=== PATIENT | male | born 1965 | race Caucasian/White ===

== ENCOUNTER 2022-07-14 21:23 | Emergency (ER) | payer BC ==
--- OUTSIDE RECORDS SUMMARY | 2022-07-14 21:26 | XMS REPORT | Continuity of Care Document ---
:1965 Author Organization [facility] t Address [address] [place] [address] Care Team Providers Name Role Phone [place] LITTLE, Jono Almeida Attending Clinician Payers Payer Name Policy Type Policy Number Effective Date Expiration Date S ource Problems This patient has no known problems. Allergies, Adverse Reactions, Alerts This patient has no known allergies or adverse reactions. Social History Social Habit Start Date Stop Date Quantity Comments Source Alcohol intake [facility] Sex Assigned At [facility] Smoking Status Start Date Stop Date Source Current every day smoker 2018-05-31 00:00:00 [facility] Medications Ordered Filled Start Stop Current Ordering Indication Dosage Frequency Signature Comments Components Source Medication Medication Date Date Medication? Clinician (SIG) Name Name enalapril Yes 10mg Take 1 Univer s 10 mg 9-17 tablet by ity of tablet 00:00: mouth 2 [place] 00 (two) Medical times [place] daily. enalapril 2019- No 10mg Take 1 Unive rs 10 mg 4-29 -17 tablet by ity of tablet 00:00: 00:00 mouth 2 [place] 00 :00 (two) Medical times [place] daily. omeprazole 2017- Yes Univers 40 mg 5-18 ity of capsule 00:00: [place] 00 [facility] sucralfate 2018-0 Yes Univers 1 gram 5-18 ity of tablet 00:00: [place] 00 [facility] HYDROcodone 2018-0 Yes Univer s -acetaminop 4-30 ity of hen 10-325 00:00: [place] mg tablet 00 Medical Branch Procedures This patient has no known procedures. Encounters Start End Encounter Admission Attending Care Care Encounter Source Date/Time Date/Time Type Type Clinicians Facility Department ID 2019-07-18 2019-07-18 Telephone DANIEL MillardMB [id number] [facility] 00:00:00 00:00:00 Jono Owens [id number] ity caty [place] [id number] Jackson Heller [id number] Al dical nal 0[address] Branch Building Results This patient has no known results.
--- NOTE | 2022-07-14 22:37 | EDPHYS ---
Physician Documentation [facility] Name: Andres Cuevas Age: 56 yrs Sex: Male : 1965 Arrival Date: 07/14/2022 Time: 21:24 Bed 17 Private MD: ED Physician Erwin Gonzales HPI: 07/15 19:12 This 56 yrs old Male presents to ER via Ambulatory with complaints of Snake bite. kdr 19:12 The patient was bitten on the dorsal aspect of distal phalanx of right index finger, by kdr a snake. Onset: The symptoms/episode began/occurred suddenly, 4 hour(s) ago. Animal information: Patient/Caregiver unable to provide information related to the animal. Secondary to the bite the patient reports erythema, swelling. Associated signs and symptoms: The patient has no apparent associated signs or symptoms. Severity of symptoms: At their worst the symptoms were very mild. The patient has not experienced similar symptoms in the past. The patient has not recently seen a physician. Historical: - Allergies: 07/14 21:44 No Known Allergies; ja4 - Immunization history:: Adult Immunizations not up to date. ROS: 07/15 19:12 Constitutional: Negative for fever, chills, and weight loss, Eyes: Negative for injury, kdr pain, redness, and discharge, Neck: Negative for injury, pain, and swelling, Cardiovascular: Negative for chest pain, palpitations, and edema, Respiratory: Negative for shortness of breath, cough, wheezing, and pleuritic chest pain, Abdomen/GI: Negative for abdominal pain, nausea, vomiting, diarrhea, and constipation, Back: Negative for injury and pain, : Negative for injury, bleeding, discharge, and swelling, Neuro: Negative for headache, weakness, numbness, tingling, and seizure activity. Psych: Negative for depression, anxiety, suicide ideation, homicidal ideation, and hallucinations, Allergy/Immunology: Negative for hives, rash, and allergies, Endocrine: Negative for neck swelling, polydipsia, polyuria, polyphagia, and marked weight changes, Hematologic/Lymphatic: Negative for swollen nodes, abnormal bleeding, and unusual bruising. MS/extremity: Positive for injury or acute deformity, abrasion, erythema, pain, swelling, Patient reports swelling to the right hand up to approximately the wrist., Negative for decreased range of motion, ecchymosis, pain, paresthesias. Exam: 19:12 Constitutional: This is a well developed, well nourished patient who is awake, alert, kdr and in no acute distress. Head/Face: Normocephalic, atraumatic. Neck: Trachea midline, no thyromegaly or masses palpated, and no cervical lymphadenopathy. Supple, full range of motion without nuchal rigidity, or vertebral point tenderness. No Meningismus. Chest/axilla: Normal chest wall appearance and motion. Nontender with no deformity. No lesions are appreciated. Cardiovascular: Regular rate and rhythm with a normal S1 and S2. No gallops, murmurs, or rubs. Normal PMI, no JVD. No pulse deficits. Respiratory: Lungs have equal breath sounds bilaterally, clear to auscultation and percussion. No rales, rhonchi or wheezes noted. No increased work of breathing, no retractions or nasal flaring. Abdomen/GI: Soft, non-tender, with normal bowel sounds. No distension or tympany. No guarding or rebound. No evidence of tenderness throughout. 19:12 Skin: Appearance: Color: erythematous, Patient has very minimal swelling and almost no pain to his hand. There is very light erythema to his wrist area.. Vital Signs: 07/14 21:40 BP 175 / 93; Pulse 86; Resp 16; Temp 98.3; Pulse Ox 100% on R/A; Weight 70.31 kg; ja4 Height 5 ft. 8 in. (172.72 cm); Pain 1/10; 21:40 Body Mass Index 23.57 (70.31 kg, 172.72 cm) ja4 Kristen Coma Score: 21:47 Eye Response: spontaneous(4). Verbal Response: oriented(5). Motor Response: obeys ja4 commands(6). Total: 15. Trauma Score (Adult): 21:47 Eye Response: spontaneous(1); Verbal Response: oriented(1); Motor Response: obeys ja4 commands(2); Systolic BP: > 89 mm Hg(4); Respiratory Rate: 10 to 29 per min(4); Kristen Score: 15; Trauma Score: 12 MDM: 22:33 Data reviewed:. kdr 22:35 Patient medically screened. kdr 07/15 19:12 ED course: I consulted Dr. Byrd who deferred to Dr. Leo. Dr. Leo older kdr injury on the right side CT age-indeterminate fracture is may not chest movement or anything like that so normal sounds like And that would be my impression to right chest right chest and skin breathing physician, stabilized I put third agreed to consult on the patient if admitted. The patient refused admission. I informed him of the need for admission and observation and possibly antivenom. He stated that he did not want to be here and that he was forced to be here by his family. He stated that if he became worse in any way he would return.. Administered Medications: No medications were administered Disposition Summary: 07/14/22 22:35 Eloped Disposition: after being seen by provider kdr Problem: new kdr Symptoms: have improved kdr Reason: feeling better kdr Condition: Stable kdr Diagnosis - Snakebite kdr Followup: kdr - With: Private Physician - When: 2 - 3 days - Reason: If symptoms return, Further diagnostic work-up, Recheck today's complaints, Continuance of care, Re-evaluation by your physician Signatures: Erwin Gonzales MD MD kdr sOei Marti RN RN ja4
--- NOTE | 2022-07-14 22:37 | ER ---
Nurse's Notes [facility] Name: Andres Cuevas Age: 56 yrs Sex: Male : 1965 Arrival Date: 07/14/2022 Time: 21:24 Bed 17 Private MD: Diagnosis: Snakebite Presentation: 07/14 21:40 Chief complaint: Patient states: snake bit aprox 3 hours ago on rt thumb. Coronavirus ja4 screen: At this time, the client does not indicate any symptoms associated with coronavirus-19. Ebola Screen: No symptoms or risks identified at this time. Initial Sepsis Screen: Does the patient meet any 2 criteria? No. Patient's initial sepsis screen is negative. Does the patient have a suspected source of infection? No. Patient's initial sepsis screen is negative. Risk Assessment: Do you want to hurt yourself or someone else? Patient reports no desire to harm self or others. Onset of symptoms was July 14, 2022. 21:40 Method Of Arrival: Ambulatory [facility] 21:40 Acuity: EUGENE 2 ja4 Triage Assessment: 21:44 Bite description: bite sustained to dorsal aspect of distal phalanx of right thumb. ja4 21:44 Bite description: by a snake, animal information: vaccination(s) is not up to date. ja4 General: Appears uncomfortable, Behavior is calm, cooperative, appropriate for age. Pain: Pain currently is 1 out of 10 on a pain scale. Injury Description: Puncture is superficial. Historical: - Allergies: 21:44 No Known Allergies; ja4 - Immunization history:: Adult Immunizations not up to date. Screenin:47 Abuse screen: Denies threats or abuse. Nutritional screening: No deficits noted. ja4 Tuberculosis screening: No symptoms or risk factors identified. Fall Risk None identified. Assessment: 21:47 Reassessment: see triage. ja4 Vital Signs: 21:40 BP 175 / 93; Pulse 86; Resp 16; Temp 98.3; Pulse Ox 100% on R/A; Weight 70.31 kg; ja4 Height 5 ft. 8 in. (172.72 cm); Pain 1/10; 21:40 Body Mass Index 23.57 (70.31 kg, 172.72 cm) ja4 Kristen Coma Score: 21:47 Eye Response: spontaneous(4). Verbal Response: oriented(5). Motor Response: obeys ja4 commands(6). Total: 15. Trauma Score (Adult): 21:47 Eye Response: spontaneous(1); Verbal Response: oriented(1); Motor Response: obeys ja4 commands(2); Systolic BP: > 89 mm Hg(4); Respiratory Rate: 10 to 29 per min(4); Kristen Score: 15; Trauma Score: 12 ED Course: 21:24 Patient arrived in ED. bp1 21:35 Osei Marti, RN is Primary Nurse. ja4 21:44 Triage completed. ja4 21:44 Arm band placed on left wrist. ja4 21:47 No apparent distress. Awaiting ED provider evaluation. ja4 21:47 Call light in reach. ja4 21:47 No provider procedures requiring assistance completed. ja4 22:13 Erwin Gonzales MD is Attending Physician. kdr Administered Medications: No medications were administered Medication: 21:47 VIS not applicable for this client. ja4 Outcome: 22:46 Eloped after seeing physician ja4 22:46 Patient left the ED. ja4 Signatures: Erwin Gonzales MD MD [facility] Christa Garcia bp1 Osei Marti, RN RN ja4
[2022-07-15 14:01] VITALS: BP 175/93; TEMP 98.3; O2SAT 100
== END 2022-07-14 22:46 | disposition left against medical advice (07) ==
LOC: ER 21:23
DX: T63.001A Toxic effect of unspecified snake venom, accidental (unintentional), initial encounter (principal)
CPT/HCPCS: 99281

== ENCOUNTER 2024-05-24 14:00 | Emergency (ER) | payer BC ==
[2024-05-24 14:46] LABS: Absolute Lymphocytes (CBC) 2.6 K/uL (0.7-4.9); Absolute Monocytes 0.6 K/uL (0.1-1.3); Absolute Neutrophil 7.9 K/uL (1.8-8.0); Basophils % 0.3 % (0-1.3); Hematocrit 32.8 % (39.6-49.0); Hemoglobin 11.1 g/dL (13.6-17.9); Lymphocytes % 23.5 % (15.3-44.8); MCHC 33.9 g/dL (32.0-36.0); MCV 103.4 fL (80-100); MPV 7.1 fL (7.6-11.3); Monocytes % 5.5 % (3.3-12.3); Neutrophils % 70.7 % (41.7-73.7); Platelets 444 thou/uL (152-406); RBC Red Blood Cell Count 3.17 M/uL (4.33-5.43); Red Cell Distribution Width 14.1 % (12.1-15.2)
[2024-05-24 14:57] LABS: PT Prothrombin Time 10.8 SECONDS (9.4-12.5); Protime INR 0.96
[2024-05-24 14:58] LABS: PTT, Activated Partial Thromb 26.3 SECONDS (24.3-36.9)
[2024-05-24 14:59] LABS: Anion Gap 11.5 mEq/L (5.0-15.0); Bilirubin Total 0.3 mg/dL (0.2-1.0); Globulin 3.9 g/dL (2.3-3.5); Potassium 3.5 mEq/L (3.5-5.1); Protein, Total 7.9 g/dL (6.4-8.2)
--- NOTE | 2024-05-24 16:15 | RAD REPORT ---
EXAM DESCRIPTION: CTAbdomen Pelvis W Contrast - 05/24/2024 3:51 pm CLINICAL HISTORY: vomiting, diarrhea, anemia COMPARISON: Abdomen Angio dated 03/18/2018 TECHNIQUE: CT of the abdomen and pelvis was performed with IV contrast. All CT scans are performed using dose optimization technique as appropriate and may include automated exposure control or mA/KV adjustment according to patient size. FINDINGS: Lower chest: No acute abnormality. Circumferential thickened distal esophagus likely refle cting esophagitis. Liver: No acute abnormality or suspicious lesions. Biliary: No biliary ductal dilatation. Stomach: No significant focal abnormality. Duodenum: No significant focal abnormality. Pancreas: No significant abnormality. Spleen: No significant abnormality. Adrenal: 2.3 cm left adrenal nodule is stable since 2018 and benign. Kidney/ureter: No hydronephrosis. No renal calculi. Retroperitoneum: No retroperitoneal adenopathy. Vascular: No aneurysm. Atherosclerosis Bowel: No significant focal abnormality. Peritoneum: No ascites or free air. Bladder: Circumferential thickening of the bladder. Reproductive: No adnexal masses. Bones: No acute fracture. Other: n/a IMPRESSION: No acute intra-abdominal or pelvic finding. Incidental findings as noted above.
--- NOTE | 2024-05-24 16:24 | EDPHYS ---
Physician Documentation [facility] Name: Andres Cuevas Age: 58 yrs Sex: Male : 1965 Arrival Date: 05/24/2024 Time: 14:00 Bed 6 Private MD: ED Physician Que Soto HPI: 05/24 14:26 This 58 yrs old Male presents to ER via Ambulatory with complaints of Abnormal orthopedic rn Results. 14:26 Patient reports sent over from Dr. Larsen's office for abnormal lab results. States rn told he was anemic but did not give him any other information. Denies any focal blood loss. Last week did have abdominal issues with vomiting/diarrhea. He is not sure if had any blood or dark stool at that time. Still having mild abdominal discomfort but feels much better than he did last week. Also daily drinker.. Onset: The symptoms/episode began/occurred at an unknown time. Severity of symptoms:. The patient has not experienced similar symptoms in the past. The patient has been recently seen by a physician:. Historical: - Allergies: 14:18 No Known Allergies; cm10 - PMHx: 14:18 Hypertensive disorder; Hypercholesterolemia; cm10 - Immunization history:: Adult Immunizations up to date. - Infectious Disease History:: Denies. - Social history:: Smoking status: Patient reports the use of cigarette tobacco products, smokes one pack cigarettes per day. Patient uses alcohol, claims drinking about a 6 pack/day. - Family history:: not pertinent. - Hospitalizations: : No recent hospitalization is reported. ROS: 14:26 Constitutional: Negative for fever, chills, and weight loss, Cardiovascular: Negative rn for chest pain, palpitations, and edema, Respiratory: Negative for shortness of breath, cough, wheezing, and pleuritic chest pain, Abdomen/GI: Positive for abdominal pain, negative for blood in stool MS/Extremity: Negative for injury and deformity, Skin: Negative for injury, rash, and discoloration, Neuro: Positive for generalized weakness and malaise Exam: 14:26 Constitutional: This is a well developed, well nourished patient who is awake, alert, rn and in no acute distress. Head/Face: Normocephalic, atraumatic. Cardiovascular: Regular rate and rhythm. No pulse deficits. Respiratory: No increased work of breathing, no retractions or nasal flaring. Abdomen/GI: Soft, non-tender MS/ Extremity: Pulses equal, no cyanosis. Neurovascular intact. Full, normal range of motion. Equal circumference. Neuro: Awake and alert, GCS 15, oriented to person, place, time, and situation. Cranial nerves II-XII grossly intact. Motor strength 5/5 in all extremities. Sensory grossly intact. Cerebellar exam normal. Normal gait. Vital Signs: 14:16 BP 170 / 81; Pulse 90; Resp 16; Temp 97.3(TE); Pulse Ox 100% on R/A; Weight 61.23 kg; cm10 Height 5 ft. 7 in. ; Pain 0/10; 17:00 BP 160 / 79; Pulse 82; Resp 17; Pulse Ox 100% on R/A; ld1 14:16 Body Mass Index 21.14 (61.23 kg, 170.18 cm) cm10 14:16 Pain Scale: Adult cm10 MDM: 14:03 Patient medically screened. rn 16:22 Differential Diagnosis Colitis, cancer, GI bleed, anemia, PAD lab test. Data reviewed: rn vital signs, nurses notes, lab test result(s), radiologic studies, CT scan, and as a result, I will discharge patient. Counseling: I had a detailed discussion with the patient and/or guardian regarding the historical points, exam findings, and any diagnostic results supporting the discharge/admit diagnosis, lab results, radiology results, the need for outpatient follow up, to return to the emergency department if symptoms worsen or persist or if there are any questions or concerns that arise at home. Special discussion: Based on the patient's Hx, exam, and Dx evaluation, there is no indication for emergent surgery or inpatient Tx. It is understood by the patient/guardian that if the Sx's persist or worsen they need to return immediately for re-evaluation. I discussed with the patient/guardian in detail that at this point there is no indication for admission to the hospital. It is understood, however, that if the symptoms persist or worsen the patient needs to return immediately for re-evaluation. Based on the history and exam findings, there is no indication for further emergent testing or inpatient evaluation. I discussed with the patient/guardian the need to see the buggy ladle tender for further evaluation of the symptoms. I discussed with the patient/guardian the need to see the primary care provider for further evaluation of the symptoms. ED course: No acute findings on workup. CT shows esophagitis but nothing else acute. Patient states already on prescription antacid. Recommend cutting back from alcohol and continuation with his antacids as well as GI follow-up. Hemoglobin here is 11 so not sure what PCP was seeing in the blood but could have been a bad lab draw. Stable vital signs. I have personally reviewed all of the results, including but not limited to blood tests and imaging deemed necessary to safely discharge this patient at this time. All results given to and printed out for patient. I personally went over all the results with the patient and answered all questions. Patient will follow-up with PCP and or specialist as discussed. Return precautions given and understood.. 05/24 14:20 Order name: CBC with Diff; Complete Time: 15:19 rn 05/24 14:20 Order name: Protime (+inr); Complete Time: 15:19 rn 05/24 14:20 Order name: Ptt, Activated; Complete Time: 15:19 05/24 14:20 Order name: CMP; Complete Time: 15:19 rn 05/24 14:20 Order name: Lipase; Complete Time: 15:19 rn 05/24 14:20 Order name: CT Abd/Pelvis - IV Contrast Only; Complete Time: 16:19 rn 05/24 14:20 Order name: IV Start; Complete Time: 14:31 rn Administered Medications: No medications were administered Disposition Summary: 05/24/24 16:24 Discharge Ordered Notes: Location: Home rn Problem: an ongoing problem rn Symptoms: have improved rn Condition: Stable rn Diagnosis - Esophagitis, unspecified rn Followup: rn - With: Josafat Stanley MD - When: As needed - Reason: Recheck today's complaints, Re-evaluation by your physician Discharge Instructions: - Discharge Summary Sheet rn - Esophagitis rn Forms: - Medication Reconciliation Form rn - 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 EDMS EDMS
--- NOTE | 2024-05-24 16:24 | ER ---
Nurse's Notes [facility] Name: Andres Cuevas Age: 58 yrs Sex: Male : 1965 Arrival Date: 05/24/2024 Time: 14:00 Bed 6 Private MD: Diagnosis: Esophagitis, unspecified Presentation: 05/24 14:16 Chief complaint: Patient states: Sent over for low hemoglobin unknown how low. Pt cm10 reports that he was feeling weak Wednesday and wednesday. Coronavirus screen: Client denies travel out of the [place] in the last 14 days. At this time, the client does not indicate any symptoms associated with coronavirus-19. Ebola Screen: Patient denies travel to an Ebola-affected area in the 21 days before illness onset. No symptoms or risks identified at this time. Initial Sepsis Screen: Does the patient meet any 2 criteria? No. Patient's initial sepsis screen is negative. Does the patient have a suspected source of infection? No. Patient's initial sepsis screen is negative. Risk Assessment: Do you want to hurt yourself or someone else? Patient reports no desire to harm self or others. Onset of symptoms was May 24, 2024. 14:16 Method Of Arrival: Ambulatory cm10 14:16 Acuity: EUGENE 3 cm10 Triage Assessment: 14:19 General: Appears in no apparent distress. comfortable, Behavior is calm, cooperative. cm10 Neuro: No deficits noted. Level of Consciousness is awake, alert, obeys commands, Oriented to person, place, time, situation, Appropriate for age. Historical: - Allergies: 14:18 No Known Allergies; cm10 - PMHx: 14:18 Hypertensive disorder; Hypercholesterolemia; cm10 - Immunization history:: Adult Immunizations up to date. - Infectious Disease History:: Denies. - Social history:: Smoking status: Patient reports the use of cigarette tobacco products, smokes one pack cigarettes per day. Patient uses alcohol, claims drinking about a 6 pack/day. - Family history:: not pertinent. - Hospitalizations: : No recent hospitalization is reported. Screenin:00 [facility] ED Fall Risk Assessment (Adult) History of falling in the last 3 months, ld1 including since admission No falls in past 3 months (0 pts) Confusion or Disorientation No (0 pts) Intoxicated or Sedated No (0 pts) Impaired Gait No (0 pts) Mobility Assist Device Used No (0 pt) Altered Elimination No (0 pt) Score/Fall Risk Level 0 - 2 = Low Risk Oriented to surroundings, Maintained a safe environment, Educated pt \T\ family on fall prevention, incl call for assistance when getting out of bed, Assessed \T\ reinforced patient's understanding of fall precautions, Provided non-skid footwear, Hourly rounding (assess needs \T\ fall precautionary measures) done, Used ambulatory aids as needed (educated on \T\ assisted with), Used gait belt as appropriate. Abuse screen: Denies threats or abuse. Denies injuries from another. Nutritional screening: No deficits noted. Tuberculosis screening: No symptoms or risk factors identified. Assessment: 14:20 Reassessment: Patient and/or family updated on plan of care and expected duration. Pain rs5 level reassessed. Patient is alert, oriented x 3, equal unlabored respirations, skin warm/dry/pink. 15:17 Reassessment: No changes from previously documented assessment. rs5 16:31 Reassessment: Patient and/or family updated on plan of care and expected duration. Pain rs5 level reassessed. Patient is alert, oriented x 3, equal unlabored respirations, skin warm/dry/pink. 17:00 General: Appears in no apparent distress. comfortable, Behavior is calm, cooperative, ld1 appropriate for age. Pain: Denies pain. Neuro: Level of Consciousness is awake, alert, obeys commands, Oriented to person, place, time, situation, Appropriate for age. Cardiovascular: Capillary refill < 3 seconds Patient's skin is warm and dry. Respiratory: Airway is patent Respiratory effort is even, unlabored. GI: Abdomen is flat, non-distended. : No signs and/or symptoms were reported regarding the genitourinary system. EENT: No signs and/or symptoms were reported regarding the EENT system. Derm: No signs and/or symptoms reported regarding the dermatologic system. Musculoskeletal: No signs and/or symptoms reported regarding the musculoskeletal system. Vital Signs: 14:16 BP 170 / 81; Pulse 90; Resp 16; Temp 97.3(TE); Pulse Ox 100% on R/A; Weight 61.23 kg; cm10 Height 5 ft. 7 in. ; Pain 0/10; 17:00 BP 160 / 79; Pulse 82; Resp 17; Pulse Ox 100% on R/A; ld1 14:16 Body Mass Index 21.14 (61.23 kg, 170.18 cm) cm10 14:16 Pain Scale: Adult cm10 ED Course: 14:02 Patient arrived in ED. mg5 14:03 Que Soto MD is Attending Physician. rn 14:18 Triage completed. cm10 14:19 Arm band placed on Patient placed in an exam room, on a stretcher. cm10 14:20 Vargas Martínez, RN is Primary Nurse. rs5 15:53 CT Abd/Pelvis - IV Contrast Only In Process Unspecified. EDMS 16:23 Josafat Stanley MD is Referral Physician. rn 16:59 No provider procedures requiring assistance completed. IV discontinued, intact, ld1 bleeding controlled, No redness/swelling at site. 17:01 Patient has correct armband on for positive identification. Placed in gown. Bed in low ld1 position. Call light in reach. Side rails up X2. phototypesetting equipment monitor on. Pulse ox on. NIBP on. Administered Medications: No medications were administered Medication: 17:01 VIS not applicable for this client. ld1 Outcome: 16:24 Discharge ordered by . rn 16:59 Discharged to home ambulatory, ld1 16:59 Condition: good 16:59 Discharge instructions given to patient, 17:01 Patient left the ED. ld1 Signatures: Dispatcher [employer] EDFL Que Soto MD MD rn Sims, Lauren, RN RN ld1 Vargas Martínez, DAYNA MCINTOSH rs5 Mikaela Lan RN RN 10 Denita Bolton mg5 Corrections: (The following items were deleted from the chart) 14:19 14:18 Home Meds: None; cm10 cm10
[2024-05-25 19:26] VITALS: BP 160/79; TEMP 97.3; O2SAT 100
== END 2024-05-24 17:01 | disposition home or self-care (01) ==
LOC: ER 14:00
DX: K20.90 Esophagitis, unspecified without bleeding (principal); I10 Essential (primary) hypertension; E78.00 Pure hypercholesterolemia, unspecified; F17.210 Nicotine dependence, cigarettes, uncomplicated; R79.89 Other specified abnormal findings of blood chemistry
CPT/HCPCS: 85025; 36415; 85610; 85730; 83690; 80053; 74177; 99284; Q9967